=== PATIENT | female | born 1950 | race Caucasian/White ===

== ENCOUNTER 2016-06-18 22:27 | Emergency (ER) | payer OTHER ==
[~2016-06-18] VITALS: Ht 177.8 cm; Wt 125.5 kg
[~2016-06-18 22:27] MED LIST: BLADDER MED PO; GLIM1 PO; IRBE150T49 PO; JANU100T PO; MAGN400T PO; METF-324 PO; ZOCO40TA PO
[2016-06-18 23:14] VITALS: BP 125/90; PULSE 83; RESP 22; TEMP 98.5; O2SAT 97
[2016-06-19] MEDS ORDERED: SODIUM CHLOR 0.9% 1000 ML INJ 1,000 ML IV SCH (00:57)
[2016-06-19] MEDS ORDERED: HYDROmorphone HCL PF 1 MG/ML VIAL IVS ONE (01:00)
[2016-06-19] MEDS ORDERED: SODIUM CHLORIDE 0.9% FLUSH 10 ML FLUSH IV FLUSH PRN (01:00)
[2016-06-19] MEDS ORDERED: ONDANSETRON HCL 4 MG/2 ML VIAL IVP ONE (01:00)
--- NOTE | 2016-06-19 01:04 | PD ---
HPI Chief Complaint: Flank/Kidney Pain Time Seen by Provider: 00:30 Travel History International Travel<30 days: No Contact w/Intl Traveler<30days: No Traveled to known affect area: No History of Present Illness HPI The patient is a 66-year-old female that complains of sudden onset right flank pain radiating to the right UVJ area for 2 hours. She has diarrhea but denies any fever, nausea or vomiting. She has had a urinary tract infection recently. She is a metformin controlled diabetic. She states the pain was "12/10"and a gripping/pinching pain. PFSH Past Medical History Cancer: No Cardiovascular Problems: No High Cholesterol: Yes Diabetes: Yes Diminished Hearing: No Endocrine: No Genitourinary: No Hypertension: Yes Immune Disorder: No Musculoskeletal: No Neurologic: No Psychiatric: No Reproductive: No Respiratory: No Menopausal: Yes Past Surgical History Abdominal Surgery: Yes (CHOLEY 90) Cardiac Surgery: No Ear Surgery: No Endocrine Surgery: No Eye Surgery: No Genitourinary Surgery: No Gynecologic Surgery: No Oral Surgery: No Thoracic Surgery: No Other Surgery: Yes Social History Alcohol Use: No Tobacco Use: No Substance Use: No Allergies-Medications (Allergen,Severity, Reaction): Coded Allergies: Iodine (Verified Allergy, Intermediate, RASH, 06/19/16) *MDRO Multi-Drug Resistant Organism (Unverified Adverse Reaction, Unknown , 06/19/16) 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 Reported Meds & Prescriptions Reported Meds & Active Scripts Active Reported Lantus Inj (Insulin Glargine) 1,000 Unit/10 Ml Vial 20 Units SQ HS Vitamin B-12 (Cyanocobalamin) 1,000 Mcg Subl 1,000 Mcg SL DAILY Levothyroxine (Levothyroxine Sodium) 25 Mcg Tab 25 Mcg PO DAILY Glimepiride 4 Mg Tab 4 Mg PO BIDAC Januvia (Sitagliptin Phosphate) 100 Mg Tab 100 Mg PO DAILY Magnesium Oxide 400 Mg Tab 400 Mg PO DIRECTED Simvastatin 10 Mg Tab 10 Mg PO DAILY Metformin (Metformin HCl) 500 Mg Tab 500 Mg PO BIDPC With meals Irbesartan 150 Mg Tab 150 Mg PO DAILY Ditropan (Oxybutynin Chloride) 5 Mg Tab 5 Mg PO Q12HR Review of Systems Except as stated in HPI: all other systems reviewed are Neg Physical Exam Narrative GENERAL: The patient is alert, oriented 3 in moderate apparent distress with her right flank/UVJ pain. Her vital signs are normal. SKIN: Focused skin assessment warm/dry. HEAD: Atraumatic. Normocephalic. EYES: Pupils equal and round. No scleral icterus. No injection or drainage. ENT: No nasal bleeding or discharge. Mucous membranes pink and moist. NECK: Trachea midline. No JVD. CARDIOVASCULAR: Regular rate and rhythm. No murmur appreciated. RESPIRATORY: No accessory muscle use. Clear to auscultation. Breath sounds equal bilaterally. GASTROINTESTINAL: Abdomen soft, with tenderness to direct palpation in the right flank and right UVJ areas, nondistended. Hepatic and splenic margins not palpable. No guarding or rebound is present. MUSCULOSKELETAL: No obvious deformities. No clubbing. No cyanosis. No edema. NEUROLOGICAL: Awake and alert. No obvious cranial nerve deficits. Motor grossly within normal limits. Normal speech. PSYCHIATRIC: The patient is anxious; insight and judgment normal. Data Data Last Documented VS Vital Signs Date Time Temp Pulse Resp B/P Pulse Ox O2 Delivery O2 Flow Rate FiO2 06/19/16 01:28 20 06/18/16 23:14 98.5 83 125/90 97 Orders Complete Blood Count With Diff (06/19/16 00:57) Comprehensive Metabolic Panel (06/19/16 00:57) Lipase (06/19/16 00:57) Urinalysis - C+S If Indicated (06/19/16 00:57) Iv Access Insert/Monitor (06/19/16 00:57) Ecg Monitoring (06/19/16 00:57) Oximetry (06/19/16 00:57) Ondansetron Inj (Zofran Inj) (06/19/16 01:00) Sodium Chlor 0.9% 1000 Ml Inj (Ns 1000 M (06/19/16 00:57) Sodium Chloride 0.9% Flush (Ns Flush) (06/19/16 01:00) Hydromorphone Pf Inj (Dilaudid Pf Inj) (06/19/16 01:00) Ct Abd/Pel W/O Iv Contrast (06/19/16 00:57) Sodium Chlor 0.9% 1000 Ml Inj (Ns 1000 M (06/19/16 02:15) Labs Laboratory Tests Test 06/19/16 06/19/16 01:20 03:54 White Blood Count 9.1 TH/MM3 Red Blood Count 4.32 MIL/MM3 Hemoglobin 12.9 GM/DL Hematocrit 38.7 % Mean Corpuscular Volume 89.7 FL Mean Corpuscular Hemoglobin 29.8 PG Mean Corpuscular Hemoglobin 33.2 % Concent Red Cell Distribution Width 13.4 % Platelet Count 249 TH/MM3 Mean Platelet Volume 8.8 FL Neutrophils (%) (Auto) 67.7 % Lymphocytes (%) (Auto) 21.5 % Monocytes (%) (Auto) 8.1 % Eosinophils (%) (Auto) 2.2 % Basophils (%) (Auto) 0.5 % Neutrophils # (Auto) 6.2 TH/MM3 Lymphocytes # (Auto) 2.0 TH/MM3 Monocytes # (Auto) 0.7 TH/MM3 Eosinophils # (Auto) 0.2 TH/MM3 Basophils # (Auto) 0.0 TH/MM3 CBC Comment DIFF FINAL Differential Comment Sodium Level 142 MEQ/L Potassium Level 3.7 MEQ/L Chloride Level 106 MEQ/L Carbon Dioxide Level 24.9 MEQ/L Anion Gap 11 MEQ/L Blood Urea Nitrogen 21 MG/DL Creatinine 0.94 MG/DL Estimat Glomerular Filtration 60 ML/MIN Rate Random Glucose 171 MG/DL Calcium Level 9.2 MG/DL Total Bilirubin 0.6 MG/DL Aspartate Amino Transf 13 U/L (AST/SGOT) Alanine Aminotransferase 20 U/L (ALT/SGPT) Alkaline Phosphatase 88 U/L Total Protein 7.5 GM/DL Albumin 3.5 GM/DL Lipase 143 U/L Urine Color YELLOW Urine Turbidity CLEAR Urine pH 5.5 Urine Specific Campbell 1.033 Urine Protein TRACE mg/dL Urine Glucose (UA) NEG mg/dL Urine Ketones NEG mg/dL Urine Occult Blood SMALL Urine Nitrite NEG Urine Bilirubin NEG Urine Leukocyte Esterase TRACE Urine RBC 20-24 /hpf Urine WBC 0-2 /hpf Urine Squamous Epithelial 0-5 /hpf Cells Urine Bacteria RARE /hpf Microscopic Urinalysis Comment CULT NOT INDICATED MDM Medical Decision Making Medical Screen Exam Complete: Yes Emergency Medical Condition: Yes Medical Record Reviewed: Yes Interpretation(s) The complete metabolic profile shows a BUN of 21, glucose 171, GFR of 80 but is otherwise normal. The lipase is normal. The CT abdomen pelvis shows 2 nonobstructing right sided renal calculi with the largest measuring 9 mm. It also shows scattered diverticulosis without diverticulitis and status post cholecystectomy. The CBC is normal. The urine shows trace protein, small occult blood, trace leukocyte esterase with 20-24 red cells and is otherwise normal and culture is not indicated. Differential Diagnosis Right ureteral stone, urinary tract infection, appendicitis, gastroenteritis, right sided diverticulitis, electrolyte disorder, anemia Narrative Course The patient may have had pain from a right ureteral stone that passed. She has blood in her urine and some large urinary stones on the right but we cannot find any other cause for the patient's pain. It is now 0446 and the patient has virtually no pain at this time. She is not nauseated. Diagnosis Primary Impression: Nephrolithiasis Additional Instructions: As we discussed, follow-up with a urologist. He did have a large stone, 9 mm on the right. Motrin is given, this is one tablet 3 times a day for the right sided pain that you had today. Med/Other Pt SpecificInfo: Prescription(s) given Disposition: 01 DISCHARGE HOME Condition: Stable Wilbert Armando MD Jun 19, 2016 01:04
[2016-06-19] MEDS ORDERED: IRBE150T15 PO (01:09)
[2016-06-19] MEDS ORDERED: SIMV10TA PO (01:09)
[2016-06-19] MEDS ORDERED: METF500T PO (01:09)
[2016-06-19] MEDS ORDERED: LEVO25TA4 PO (01:09)
[2016-06-19] MEDS ORDERED: OXYB5TAB10 PO (01:09)
[2016-06-19] MEDS ORDERED: VITA100021 SL (01:09)
[2016-06-19] MEDS ORDERED: MAGN400T2 PO (01:09)
[2016-06-19] MEDS ORDERED: GLIM4TAB PO (01:09)
[2016-06-19] MEDS ORDERED: SITA1TAB2 PO (01:09)
[2016-06-19] MEDS ORDERED: LANTUS2P SQ (01:27)
[2016-06-19 01:29] LABS: AUTOMATED NEUTROPHIL # 6.2 TH/MM3 (1.8-7.7); BASOPHIL % 0.5 % (0.0-2.0); EOSINOPHIL # 0.2 TH/MM3 (0-0.4); EOSINOPHIL % 2.2 % (0.0-4.0); HEMATOCRIT 38.7 % (35.0-46.0); HEMO FLAGS DIFF FINAL; LYMPH % 21.5 % (9.0-44.0); MEAN CELL VOLUME 89.7 FL (80.0-100.0); MEAN CORPUSCULAR HEMOGLOBIN 29.8 PG (27.0-34.0); MEAN CORPUSCULAR HGB CONC 33.2 % (32.0-36.0); MONO % 8.1 % (0.0-8.0); NEUT % 67.7 % (16.0-70.0); PLATELET COUNT 249 TH/MM3 (150-450); RED BLOOD COUNT 4.32 MIL/MM3 (4.00-5.30); RED CELL DISTRIBUTION WIDTH 13.4 % (11.6-17.2); WHITE BLOOD COUNT 9.1 TH/MM3 (4.0-11.0)
[2016-06-19 01:30] VITALS: BP 132/74; PULSE 82; RESP 20; O2SAT 98
[2016-06-19 01:37] LABS: CHLORIDE 106 MEQ/L (98-107); POTASSIUM 3.7 MEQ/L (3.5-5.1); SODIUM (NA) 142 MEQ/L (136-145)
[2016-06-19 01:41] LABS: ANION GAP 11 MEQ/L (5-15); BICARBONATE 24.9 MEQ/L (21.0-32.0); BLOOD UREA NITROGEN 21 MG/DL (7-18)
[2016-06-19 01:43] LABS: ALT (GPT) 20 U/L (10-53); AST (GOT) 13 U/L (15-37)
[2016-06-19 01:44] LABS: GLOMERULAR FILTRATION RATE 60 ML/MIN (>89)
[2016-06-19 01:45] LABS: TOTAL BILIRUBIN ADULT 0.6 MG/DL (0.2-1.0)
[2016-06-19 01:46] LABS: ALKALINE PHOSPHATASE 88 U/L (45-117)
--- NOTE | 2016-06-19 01:52 | RADHPO ---
EXAM DATE/TIME: 06/19/2016 01:29 [facility] COMPARISON: No previous studies available for comparison. INDICATIONS : Right flank pain with diarrhea. ORAL CONTRAST: No oral contrast ingested. RADIATION DOSE: 25.64 CTDIvol (mGy) MEDICAL HISTORY : Diabetes mellitus type 2. Hypertension. SURGICAL HISTORY : Cholecystectomy. ENCOUNTER: Initial ACUITY: 1 day PAIN SCALE: 10/10 LOCATION: Right flank abdomen TECHNIQUE: Volumetric scanning of the abdomen and pelvis was performed. Using automated exposure control and ad justment of the mA and/or kV according to patient size, radiation dose was kept as low as reasonably achievable to obtain optimal diagnostic quality images. FINDINGS: LOWER LUNGS: The visualized lower lungs are clear. LIVER: Homogeneous density without lesion. There is no dilation of the biliary tree. Status post cholecyste ctomy. SPLEEN: Normal size without lesion. PANCREAS: Within normal limits. KIDNEYS: Normal in size and shape. There is no mass, stone, or hydronephrosis on the left. There are 2 nonobs tructing right-sided renal calculi one measuring 2-3 mm in the mid region and one in the lower pole m easuring 9 x 3 mm. ADRENAL GLANDS: Within normal limits. VASCULAR: There is no aortic aneurysm. BOWEL/MESENTERY: Scattered diverticulosis without diverticulitis. There is no free intraperitoneal air or fluid. ABDOMINAL WALL: Within normal limits. RETROPERITONEUM: There is no lymphadenopathy. BLADDER: No wall thickening or mass. REPRODUCTIVE: Within normal limits. INGUINAL: There is no lymphadenopathy or hernia. MUSCULOSKELETAL: Within normal limits for patient age. CONCLUSION: 1. 2 nonobstructing right-sided renal calculi the largest measuring 9 mm. 2. Scattered diverticulosis without diverticulitis. 3. Status post cholecystectomy. Catalino Mei MD on June 19, 2016 at 1:48 Board Certified Radiologist. This report was verified electronically.
[2016-06-19] MEDS: SODIUM CHLOR 0.9% 1000 ML INJ 1,000 ML IV SCH ×2 (02:15→02:45)
[2016-06-19 04:02] LABS: BLOOD, URINE SMALL (NEG); GLUCOSE,URINE NEG (NEG); KETONE, URINE NEG (NEG); NITRITE,URINE NEG (NEG); PH, URINE 5.5 (5.0-8.5)
[2016-06-19 04:06] LABS: URINE COLOR YELLOW (YELLW/STRAW)
[2016-06-19 04:07] LABS: WBC, URINE 0-2 /hpf (0-5)
[2016-06-19 04:08] LABS: BACTERIA, URINE RARE /hpf; COMMENT (UR) CULT NOT INDICATED; CULTURE IF INDICATED CULT NOT INDICATED; SQUAMOUS EPITHELIAL CELL URINE 0-5 /hpf (0-5)
[2016-06-19 05:30] VITALS: BP 128/65; PULSE 78; RESP 20; O2SAT 98
[2016-06-19 06:01] VITALS: BP 123/52; PULSE 61; RESP 20; O2SAT 99
[2016-06-19] MEDS ORDERED: IBUP-232 PO (06:14)
== END 2016-06-19 06:42 | disposition home or self-care (01) ==
LOC: PHED 22:27
DX: N20.0 Calculus of kidney (principal); R19.7 Diarrhea, unspecified; E11.9 Type 2 diabetes mellitus without complications; E78.00 Pure hypercholesterolemia, unspecified; I10 Essential (primary) hypertension; Z79.84 Long term (current) use of oral hypoglycemic drugs
CPT/HCPCS: 74176; 80053; 81001; 83690; 85025; 96361; 96374; 96375; 99284; J1170; J2405; J7030